=== PATIENT | male | born 1995 | race Caucasian/White ===

== ENCOUNTER 2017-06-28 15:41 | Emergency (ER) | payer BC ==
[~2017-06-28] VITALS: Ht 185.4 cm; Wt 119.1 kg
[2017-06-28 18:14] VITALS: BP 143/77
== END 2017-06-28 18:18 | disposition home or self-care (01) ==
LOC: EME 15:41
DX: J10.1 Influenza due to other identified influenza virus with other respiratory manifestations (principal)
CPT/HCPCS: 71046; 87502; 87651 90; 99281; 99284

== ENCOUNTER 2017-07-27 20:21 | Emergency (ER) | payer BC ==
[~2017-07-27] VITALS: Ht 185.4 cm; Wt 113.1 kg
[2017-07-27 20:48] LABS: HEMATOCRIT 45.8 % (38.0-50.0); HEMOGLOBIN 15.7 G/DL (12.5-16.6); MCHC 34.3 G/DL (30.0-36.0); MCV 81.8 FL (86-99); PLATELET COUNT 190 K/uL (156-360); RBC DIS.WIDTH-CV 13.6 % (11.8-14.6); RBC DIS.WIDTH-SD 39.9 % (39-53); WHITE BLOOD COUNT 10.5 K/uL (4.1-10.2)
[2017-07-27 20:56] LABS: ALBUMIN 5.1 g/dL (3.2-4.8); CHLORIDE 105 mEq/L (99-109); SODIUM 140 mEq/L (136-147)
[2017-07-27 20:58] LABS: GLUCOSE 93 mg/dL (70-99); TOTAL PROTEIN 8.2 g/dL (6.4-8.3)
[2017-07-27 21:02] LABS: ALKALINE PHOSPHATASE 101 IU/L (3-129); CREATININE 1.1 mg/dL (0.6-1.3); GFR ESTIMATE (CALCULATED) > 59 mL/min/ (58.99-99999)
[2017-07-27 21:03] LABS: AST (GOT) 21 IU/L (2-34); UREA NITROGEN (BUN) 14 mg/dL (9-23)
[2017-07-27 21:05] LABS: ALT (GPT) 26 IU/L (3-49)
[2017-07-27 21:33] LABS: APPEARANCE CLEAR ((CLEAR)); BILIRUBIN NEGATIVE; BLOOD NEGATIVE; COLOR YELLOW ((YELLOW)); GLUCOSE (STRIP) NEGATIVE; KETONES 20; LEUKOCYTES NEGATIVE; NITRITE NEGATIVE; PROTEIN (STRIP) NEGATIVE; SPECIFIC GRAVITY 1.011 (1.000-1.030); UCUL ADDED? NO; UROBILINOGEN 0.2 MG/DL (0.2-1.0)
[2017-07-27 22:27] LABS: THYROTROPIN (TSH) 1.8 MIU/L (0.4-5.5)
[2017-07-27 23:39] LABS: MONOSPOT (MONONUCLEOSIS SEROL) NEGATIVE
[2017-07-28 00:26] VITALS: BP 140/86
[2017-07-28 10:51] LABS: LYME DISEASE SEROLOGY SCREEN NEGATIVE (NEGATIVE)
[2017-07-29 14:17] LABS: HEMOGLOBIN A1c (GLYCOHEMOGLOB) 4.9 % (Below 5.7)
== END 2017-07-28 00:28 | disposition home or self-care (01) ==
LOC: EME 20:21
PROVIDERS: Emergency Medicine
DX: R53.83 Other fatigue (principal)
CPT/HCPCS: 80053; 81003; 82948; 83036; 84443; 85027; 86308; 86618; 99281; 99285